=== PATIENT | male | born 1970 | race Caucasian/White ===

== ENCOUNTER 2017-01-11 14:29 | Outpatient (CLI) | payer MEDICAID ==
[2017-01-11 19:20] LABS: BASOPHILS # (AUTO) 0.1 10^3/uL (0.0-0.1); BASOPHILS % (AUTO) 0.6 %; EOSINOPHILS # (AUTO) 0.2 10^3/uL (0.0-0.7); HCT - HEMATOCRIT 43.5 % (42.0-52.0); LYMPHOCYTES # (AUTO) 4.2 10^3/uL (1.5-3.5); LYMPHOCYTES % (AUTO) 23.9 %; MEAN CORPUSCULAR HEMOGLOBIN 28.5 pg (27.0-31.0); MEAN CORPUSCULAR HGB CONC 32.2 g/dL (32.0-36.0); MEAN CORPUSCULAR VOLUME 88.4 fL (80.0-94.0); MEAN PLATELET VOLUME 7.9 fL (7.4-11.4); MONOCYTES # (AUTO) 1.1 10^3/uL (0.0-1.0); MONOCYTES % (AUTO) 6.1 %; NEUTROPHILS % (AUTO) 68.4 %; RED BLOOD COUNT 4.92 10^6/uL (4.70-6.10); RED CELL DISTRIBUTION WIDTH 14.5 % (12.0-15.0); UNCORRECTED WHITE BLOOD COUNT 17.5 x10^3/uL; WHITE BLOOD COUNT 17.5 x10^3/uL (4.8-10.8)
[2017-01-11 19:39] LABS: ALBUMIN/GLOBULIN RATIO 0.8 (1.0-2.2); BILIRUBIN,TOTAL 0.5 mg/dL (0.2-1.0); BUN - BLOOD UREA NITROGEN 13 mg/dL (6-20); CALCIUM 9.1 mg/dL (8.5-10.3); CARBON DIOXIDE - CO2 21 mmol/L (21-32); CHLORIDE 102 mmol/L (101-111); CHOL/HDL RATIO 3.1 (<5.0); CHOLESTEROL 144 mg/dL; CREATININE 0.9 mg/dL (0.6-1.2); GFR - MDRD 91 (>89); GLUCOSE 108 mg/dL (70-100); HDL CHOLESTEROL 46 mg/dL; LDL/HDL RATIO 1.6 (<3.6); POTASSIUM 3.6 mmol/L (3.5-5.0); SODIUM 138 mmol/L (135-145); TOTAL PROTEIN 8.3 g/dL (6.7-8.2); TRIGLYCERIDES 116 mg/dL; VLDL CHOLESTEROL 23 mg/dL
== END 2017-01-11 14:30 | disposition home or self-care (01) ==
LOC: LAB.N 14:29
PROVIDERS: ATTEND Family Medicine
DX: E66.01 Morbid (severe) obesity due to excess calories (principal); I10 Essential (primary) hypertension; Z79.899 Other long term (current) drug therapy
CPT/HCPCS: 36415; 80053; 80061; 84443; 85025

== ENCOUNTER 2017-01-11 14:38 | Outpatient (CLI) | payer MEDICAID | END 2017-01-11 14:39 | disposition home or self-care (01) | LOC: SC 14:38 | PROVIDERS: ATTEND Nurse Practitioner Family | DX: G47.33 Obstructive sleep apnea (adult) (pediatric) (principal); E66.01 Morbid (severe) obesity due to excess calories; I10 Essential (primary) hypertension; Z79.899 Other long term (current) drug therapy | CPT/HCPCS: 36415; 80053; 80061; 84443; 85025; 99212; 99214 ==

== ENCOUNTER 2017-07-14 14:13 | Outpatient (CLI) | payer MEDICAID | END 2017-07-14 14:14 | disposition home or self-care (01) | LOC: SC 14:13 | PROVIDERS: ATTEND Nurse Practitioner Family | DX: G47.33 Obstructive sleep apnea (adult) (pediatric) (principal) | CPT/HCPCS: 99212; 99214 ==

== ENCOUNTER 2017-09-02 15:06 | Outpatient (CLI) | payer MEDICAID ==
--- NOTE | 2017-09-02 16:02 | XRAY Report ---
LEFT KNEE THREE VIEWS: 09/02/2017 HISTORY: Pain. COMPARISON: None. FINDINGS: Medial and lateral knee joint space grossly well maintained. Mild patellar articular surface spurring. No fracture, malalignment, joint effusion or other abnormality. IMPRESSION: MINOR EARLY DEGENERATIVE CHANGE LEFT KNEE COMMENSURATE WITH THE PATIENT'S AGE. TD: 09/02/2017 16:01
== END 2017-09-02 15:07 | disposition home or self-care (01) ==
LOC: DI.N 15:06
PROVIDERS: ATTEND Family Medicine
DX: M17.12 Unilateral primary osteoarthritis, left knee (principal); I10 Essential (primary) hypertension; Z79.899 Other long term (current) drug therapy
CPT/HCPCS: 36415; 80053; 85025

== ENCOUNTER 2017-09-02 15:24 | Outpatient (CLI) | payer MEDICAID ==
[2017-09-02 18:55] LABS: BASOPHILS # (AUTO) 0.1 10^3/uL (0.0-0.1); BASOPHILS % (AUTO) 0.5 %; EOSINOPHILS # (AUTO) 0.1 10^3/uL (0.0-0.7); EOSINOPHILS % (AUTO) 0.9 %; HGB - HEMOGLOBIN 13.1 g/dL (14.0-18.0); LYMPHOCYTES # (AUTO) 3.1 10^3/uL (1.5-3.5); LYMPHOCYTES % (AUTO) 23.4 %; MEAN CORPUSCULAR HEMOGLOBIN 27.6 pg (27.0-31.0); MEAN CORPUSCULAR HGB CONC 32.3 g/dL (32.0-36.0); MEAN CORPUSCULAR VOLUME 85.6 fL (80.0-94.0); MONOCYTES # (AUTO) 0.8 10^3/uL (0.0-1.0); MONOCYTES % (AUTO) 6.1 %; NEUTROPHILS # (AUTO) 9.2 10^3/uL (1.5-6.6); NEUTROPHILS % (AUTO) 69.1 %; PLT - PLATELET COUNT 316 10^3/uL (130-450); RED BLOOD COUNT 4.76 10^6/uL (4.70-6.10); RED CELL DISTRIBUTION WIDTH 14.6 % (12.0-15.0); WHITE BLOOD COUNT 13.3 x10^3/uL (4.8-10.8)
[2017-09-02 19:17] LABS: ALBUMIN 3.8 g/dL (3.2-5.5); BILIRUBIN,TOTAL 0.5 mg/dL (0.2-1.0); CALCIUM 8.9 mg/dL (8.5-10.3); TOTAL PROTEIN 7.8 g/dL (6.7-8.2)
== END 2017-09-02 15:25 | disposition home or self-care (01) ==
LOC: LAB.N 15:24
PROVIDERS: ATTEND Family Medicine
DX: I10 Essential (primary) hypertension (principal); Z79.899 Other long term (current) drug therapy
CPT/HCPCS: 36415; 80053; 85025

== ENCOUNTER 2018-05-15 13:05 | Outpatient (CLI) | payer MEDICAID ==
[2018-05-15 19:17] LABS: BASOPHILS # (AUTO) 0.1 10^3/uL (0.0-0.1); BASOPHILS % (AUTO) 0.8 %; EOSINOPHILS # (AUTO) 0.2 10^3/uL (0.0-0.7); EOSINOPHILS % (AUTO) 1.9 %; HGB - HEMOGLOBIN 13.8 g/dL (14.0-18.0); LYMPHOCYTES # (AUTO) 2.3 10^3/uL (1.5-3.5); LYMPHOCYTES % (AUTO) 24.3 %; MEAN CORPUSCULAR HEMOGLOBIN 28.1 pg (27.0-31.0); MEAN CORPUSCULAR HGB CONC 32.2 g/dL (32.0-36.0); MEAN CORPUSCULAR VOLUME 87.2 fL (80.0-94.0); MEAN PLATELET VOLUME 7.9 fL (7.4-11.4); MONOCYTES # (AUTO) 0.5 10^3/uL (0.0-1.0); MONOCYTES % (AUTO) 5.8 %; NEUTROPHILS # (AUTO) 6.2 10^3/uL (1.5-6.6); NEUTROPHILS % (AUTO) 67.2 %; PLT - PLATELET COUNT 270 10^3/uL (130-450); RED BLOOD COUNT 4.92 10^6/uL (4.70-6.10); RED CELL DISTRIBUTION WIDTH 14.8 % (12.0-15.0); WHITE BLOOD COUNT 9.3 x10^3/uL (4.8-10.8)
[2018-05-15 19:38] LABS: ALBUMIN 3.7 g/dL (3.2-5.5); ALBUMIN/GLOBULIN RATIO 0.9 (1.0-2.2); ALKALINE PHOSPHATASE 72 IU/L (42-121); ALT ALANINE AMINOTRANSFERASE 25 IU/L (10-60); AST ASPARTATE AMINOTRANSFERASE 21 IU/L (10-42); BILIRUBIN,TOTAL 0.5 mg/dL (0.2-1.0); BUN - BLOOD UREA NITROGEN 10 mg/dL (6-20); CALCIUM 8.8 mg/dL (8.5-10.3); CARBON DIOXIDE - CO2 25 mmol/L (21-32); CHLORIDE 100 mmol/L (101-111); CHOL/HDL RATIO 3.4 (<5.0); CHOLESTEROL 156 mg/dL; CREATININE 0.8 mg/dL (0.6-1.2); GFR - MDRD 104 (>89); GLUCOSE 95 mg/dL (70-100); HDL CHOLESTEROL 46 mg/dL; LDL CHOLESTEROL,CALCULATED 91 mg/dL; SODIUM 136 mmol/L (135-145); TOTAL PROTEIN 7.8 g/dL (6.7-8.2); VLDL CHOLESTEROL 19 mg/dL
== END 2018-05-15 23:59 | disposition home or self-care (01) ==
LOC: LAB.N 13:05
PROVIDERS: ATTEND Family Medicine
DX: E66.01 Morbid (severe) obesity due to excess calories (principal); I10 Essential (primary) hypertension
CPT/HCPCS: 36415; 80053; 80061; 83721; 84443; 85025

== ENCOUNTER 2018-07-26 08:00 | Outpatient (CLI) | payer MEDICAID ==
[2018-07-26 19:13] LABS: BASOPHILS # (AUTO) 0.1 10^3/uL (0.0-0.1); BASOPHILS % (AUTO) 0.4 %; EOSINOPHILS # (AUTO) 0.2 10^3/uL (0.0-0.7); EOSINOPHILS % (AUTO) 1.2 %; LYMPHOCYTES # (AUTO) 2.7 10^3/uL (1.5-3.5); LYMPHOCYTES % (AUTO) 20.6 %; MEAN CORPUSCULAR HEMOGLOBIN 27.7 pg (27.0-31.0); MEAN CORPUSCULAR HGB CONC 32.2 g/dL (32.0-36.0); MEAN CORPUSCULAR VOLUME 86.2 fL (80.0-94.0); MEAN PLATELET VOLUME 7.7 fL (7.4-11.4); MONOCYTES # (AUTO) 0.7 10^3/uL (0.0-1.0); MONOCYTES % (AUTO) 5.6 %; NEUTROPHILS # (AUTO) 9.5 10^3/uL (1.5-6.6); NEUTROPHILS % (AUTO) 72.2 %; PLT - PLATELET COUNT 301 10^3/uL (130-450); RED BLOOD COUNT 4.69 10^6/uL (4.70-6.10); RED CELL DISTRIBUTION WIDTH 14.8 % (12.0-15.0); WHITE BLOOD COUNT 13.2 x10^3/uL (4.8-10.8)
== END 2018-07-26 23:59 | disposition home or self-care (01) ==
LOC: LAB.N 08:00
PROVIDERS: ATTEND Physician Assistant Medical
DX: R06.02 Shortness of breath (principal)
CPT/HCPCS: 36415; 83880; 85025

== ENCOUNTER 2018-07-26 12:12 | Outpatient (CLI) | payer MEDICAID ==
--- NOTE | 2018-07-26 13:54 | XRAY Report ---
Reason: SOB Procedure Date: 07/26/2018 Accession Number: [id number] / [id number] Procedure: XRN - Chest 2 View X-Ray CPT Code: 05942 FULL RESULT: EXAM: CHEST RADIOGRAPHY EXAM DATE: 07/26/2018 12:45 PM. CLINICAL HISTORY: Shortness of breath. COMPARISON: None. TECHNIQUE: 2 views. FINDINGS: The examination is limited due to patient body habitus, underpenetration and positioning. Lungs/Pleura: Within these limitations, no focal opacities evident. No pleural effusion. No pneumothorax. Normal volumes. Mediastinum: The cardiomediastinal contour demonstrates a tortuous aorta. The cardiac silhouette is not enlarged. Other: None. IMPRESSION: No acute airspace disease is detected. RADIA
== END 2018-07-26 12:13 | disposition home or self-care (01) ==
LOC: DI.N 12:12
PROVIDERS: ATTEND Physician Assistant Medical
DX: R06.02 Shortness of breath (principal)
CPT/HCPCS: 71046

== ENCOUNTER 2018-09-13 10:59 | Outpatient (CLI) | payer MEDICAID ==
--- NOTE | 2018-09-13 11:25 | CT Report ---
Reason: INTRACTABLE MIGRAINE WITH AURA WITH STATUS MIGRAIN Procedure Date: 09/13/2018 Accession Number: [id number] / [id number] Procedure: CT - HEAD WO CPT Code: FULL RESULT: EXAM: CT HEAD EXAM DATE: 09/13/2018 11:11 AM. CLINICAL HISTORY: INTRACTABLE MIGRAINE WITH AURA WITH STATUS MIGRAINE. COMPARISON: None. TECHNIQUE: Multiaxial CT images were obtained from the foramen magnum to the vertex. Reformats: Sagittal and coronal. IV contrast: None. In accordance with CT protocol optimization, one or more of the following dose reduction techniques were utilized for this exam: automated exposure control, adjustment of mA and/or KV based on patient size, or use of iterative reconstructive technique. FINDINGS: Parenchyma: No intraparenchymal hemorrhage. No evidence of mass, midline shift, or CT findings of infarction. Adame-white differentiation is distinct. Extraaxial Spaces: Normal for age. No subdural or epidural collections identified. Ventricles: Normal in size and position. Sinuses and Orbits: Imaged paranasal sinuses, orbits, and mastoids show no significant abnormality. Bones: No evidence of fracture or calvarial defect. Other: None. IMPRESSION: Normal head CT. RADIA
== END 2018-09-13 11:00 | disposition home or self-care (01) ==
LOC: DI 10:59
PROVIDERS: ATTEND Psychiatry & Neurology Neurology
DX: S09.90XA Unspecified injury of head, initial encounter (principal); G43.111 Migraine with aura, intractable, with status migrainosus
CPT/HCPCS: 70450

== ENCOUNTER 2019-03-20 13:18 | Outpatient (CLI) | payer MEDICAID ==
[2019-03-20 15:13] VITALS: BP 120/80
--- NOTE | 2019-03-20 15:13 | SLEEP CARE CONSULTATION ---
Information from patient questionnaire entered by Sherice Graves. I have reviewed and concur with the information entered by Sherice Graves. This document represents the service I personally performed and the decisions made by me, Patrica Andres, RN, MSN, PARALEGAL LEGAL SECRETARY. History of Present Illness Previous diagnosis: Extremely Severe, Obstructive Sleep Apnea-Hypopnea Syndrome AHI: 113.4 Reason for CPAP/BiPAP follow up: annual Equipment type: BiPAP Equipment obtained from: [facility] (having problems getting supplies) Mask style: Full face Mask brand: Resmed (Air Fit F20) Backup mask available: No (using his back up ) Last cushion change: 6 months or more Prior sleep studies: Yes Year and Where: 2010 [facility] CPAP Compliance Data - Data Reviewed with Patient Average duration of nightly device use: 4h 27m Compliance rate %: 55.6 Current pressure setting (cmH2O): 25/21 Humidity setting: off Heated hose setting: off Average residual AHI: 12.1 Central apnea: 0.1 Obstructive apnea: 0.4 Hypopnea: 11.6 Average large leak: 2.5 hours Subjective Patient concerns: reports: dry mouth, nose, throat (occasional). denies: aero phagia, mask discomfort, air blowing in eyes, mask leak noise, condensation in mask/hose, nasal congestion, epistaxis Observed to snore while using device: No Current pressure setting perceived as: comfortable On therapy, patient: reports: sleeping better, awakening more refreshed, being more awake and alert during the day, more rested overall. denies: drowsiness while driving (does not drive) Initial [place] Sleepiness Scale score: 16 Current [place] Sleepiness Scale score: 5 Allergies and Home Medications Home medication list reviewed: Yes Allergy and home medication list: Medication Name (generic/name brand) Strength & Dosage Imitrex 100mg tab one at onset of HERNANDEZ as needed Banophen 5mg tab one at bedtime Propranolol 80mg tab BID Zantac 300mg tab PRN Zoloft 100mg tab 2 BID Depakote 250mg tab 3 daily Gabapentin 300mg tab TID Enalapril 20mg tab at bedtime Lasix 10mg at BID Amovig 140mg injection montly for HERNANDEZ Porchlorper 10mg as needed if no imetrex atorvastatin 40mg daily Allergies: BEES Review of Systems Review of systems same as previous: Yes Physical Exam Blood Pressure: 120/80 Cuff size: wrist Heart Rate: 84 O2 Saturation: 97 Height: 6 ft 3 in Weight: 542 lb Body Mass Index: 67.7 BMI Classification: Obesity Class 3 Impression and Plan 1. Obstructive Sleep Apnea-Hypopnea Syndrome, extremely severe, with fair treatment compliance and elevated residual AHI. On BiPAP therapy, the patient has better sleep quality and is more rested overall. The complaince may be less due to extreme mask leaks which could be showing mask off face as patient states he does not wake with mask off his face. His residual AHI could be elevated by his mask leaks as well as his 22 pound weight gain. He states that his medications had increased recent weight and his neurologist has changed his medications which should reduce risk of weight gain. He is having difficulty getting supplies and would like to transfer. However, he may need to improve compliance his compliance first. I will make a transfer order and have staff discuss his options. Since it is unknown when he will get supplies and his mask is falling apart, I fitted him with a large Mari View sample. He is advised to discuss weight loss with his PCP as his current BMI 67 shows morbid obesity which will increase apnea risk and overall health risk. He is about 70 pounds more than when he was diagnosed in 2011. He can discuss a diet consultation and / or bariatric. He will need to change diet habits and lose weight as part of bariatric surgery process for better success of treatment. He is thus advised to make an appointment with PCP to discuss his weight and impact to his health. Currently he has dyspnea with ambulation which subsides within minutes of resting. Patient agreed with plan. Patient's apnea severity and rationale for treatment to reduce apnea, improve sleep quality and reduce cardiovascular and cerebrovascular events was reviewed. I also reviewed the benefit of consistent device use of BiPAP for hypertension gastric reflux, depression/anxiety, migraines. * Continue BiPAP pressure at 25/21 cmH2O * Try Mari View - large mask * Transfer to new DME * Notify me if snoring with mask or feeling that the pressure is too much or too little * Attempt to lose weight * Follow up with PCP for diet consultation / bariatric surgery discussion for weight loss. * Return for follow up in 2 months , or sooner if concerns arise I spent 100% of this 30 minute visit face to face with the patient with greater than 50% of this was spent time counseling the patient and coordination of care.
== END 2019-03-20 13:19 | disposition home or self-care (01) ==
LOC: SC 13:18
PROVIDERS: ATTEND Nurse Practitioner Family
DX: G47.33 Obstructive sleep apnea (adult) (pediatric) (principal); E66.01 Morbid (severe) obesity due to excess calories; Z68.44 Body mass index [BMI] 60.0-69.9, adult
CPT/HCPCS: 99212; 99214

== ENCOUNTER 2019-08-01 09:30 | Outpatient (CLI) | payer MEDICAID ==
[2019-08-01 12:06] LABS: BASOPHILS # (AUTO) 0.1 10^3/uL (0.0-0.1); BASOPHILS % (AUTO) 0.6 %; EOSINOPHILS # (AUTO) 0.2 10^3/uL (0.0-0.7); EOSINOPHILS % (AUTO) 2.1 %; HGB - HEMOGLOBIN 12.2 g/dL (14.0-18.0); LYMPHOCYTES # (AUTO) 3.4 10^3/uL (1.5-3.5); LYMPHOCYTES % (AUTO) 30.9 %; MEAN CORPUSCULAR HEMOGLOBIN 26.4 pg (27.0-31.0); MEAN CORPUSCULAR HGB CONC 30.4 g/dL (32.0-36.0); MEAN CORPUSCULAR VOLUME 86.8 fL (80.0-94.0); MONOCYTES # (AUTO) 0.6 10^3/uL (0.0-1.0); MONOCYTES % (AUTO) 5.7 %; NEUTROPHILS # (AUTO) 6.5 10^3/uL (1.5-6.6); NEUTROPHILS % (AUTO) 59.7 %; PLT - PLATELET COUNT 288 10^3/uL (130-450); RED BLOOD COUNT 4.62 10^6/uL (4.70-6.10); RED CELL DISTRIBUTION WIDTH 15.3 % (12.0-15.0); WHITE BLOOD COUNT 10.9 x10^3/uL (4.8-10.8)
[2019-08-01 12:21] LABS: HB2 TOTAL 12.5 g/dL; HEMOGLOBIN A1C 0.63 g/dL; HEMOGLOBIN A1C % 6.8 % (4.6-6.2)
[2019-08-01 12:28] LABS: ALBUMIN 3.4 g/dL (3.2-5.5); ALBUMIN/GLOBULIN RATIO 0.8 (1.0-2.2); ALKALINE PHOSPHATASE 81 IU/L (42-121); ALT ALANINE AMINOTRANSFERASE 32 IU/L (10-60); AST ASPARTATE AMINOTRANSFERASE 25 IU/L (10-42); BILIRUBIN,TOTAL 0.5 mg/dL (0.2-1.0); BUN - BLOOD UREA NITROGEN 11 mg/dL (6-20); CALCIUM 8.4 mg/dL (8.5-10.3); CARBON DIOXIDE - CO2 24 mmol/L (21-32); CHLORIDE 101 mmol/L (101-111); CHOL/HDL RATIO 2.7 (<5.0); CHOLESTEROL 120 mg/dL; CREATININE 0.9 mg/dL (0.6-1.2); GFR - MDRD 90 (>89); GLUCOSE 128 mg/dL (70-100); HDL CHOLESTEROL 44 mg/dL; LDL CHOLESTEROL,CALCULATED 57 mg/dL; LDL/HDL RATIO 1.3 (<3.6); SODIUM 136 mmol/L (135-145); TOTAL PROTEIN 7.5 g/dL (6.7-8.2); VLDL CHOLESTEROL 19 mg/dL
== END 2019-08-01 23:59 | disposition home or self-care (01) ==
LOC: LAB.N 09:30
PROVIDERS: ATTEND Physician Assistant Medical
DX: I10 Essential (primary) hypertension (principal); I25.2 Old myocardial infarction; E66.01 Morbid (severe) obesity due to excess calories
CPT/HCPCS: 36415; 80053; 80061; 83036; 83721; 85025

== ENCOUNTER 2019-08-02 19:30 | Outpatient (CLI) | payer MEDICAID | END 2019-08-02 23:59 | LOC: SC 19:30 | PROVIDERS: ATTEND Internal Medicine Pulmonary Disease | DX: G47.33 Obstructive sleep apnea (adult) (pediatric) (principal) | CPT/HCPCS: 95806 ==

== ENCOUNTER 2019-10-08 13:57 | Outpatient (CLI) | payer MEDICAID ==
--- NOTE | 2019-10-08 11:31 | SLEEP CARE CONSULTATION ---
Information from patient questionnaire entered by Sherice Graves. I have reviewed and concur with the information entered by Sherice Graves. This document represents the service I personally performed and the decisions made by me, Patrica Andres RN, MSN, TIRE SHOP MANAGER. History of Present Illness Service Date and Time: 10/08/2019 1100 Initial [place] Sleepiness Scale score: 16 Additional HPI information: JUSTINO GAMBINO returns for a video telehealth appointment. for follow up and results of the recently performed home sleep study to requalify for a new BiPAP. Patient is currently using a loaner BiPAP device set at unknown pressure range by Dr. Cha as his device broke. He reports intermittent air hunger. There is no data for this device at this visit. I explained the pathophysiology behind obstructive sleep apnea. We then spent quite a bit of time discussing different treatment options. For mild obstructive sleep apnea, surgery and oral appliance are alternatives to nasal CPAP therapy but in moderate or severe cases, nasal CPAP is the most effective and reliable treatment. I reviewed the impact of weight changes on sleep apnea and strongly recommended losing weight. After some discussion, the patient opted to continue with BiPAP therapy. A Prescription will be made to update his BiPAP at past pressure range noted in his past visit note last fall at 25/90khV25. I reviewed how BiPAP machine works and emphasized use with all sleep. His compliance was at 55% last visit due to missed days when migraines. I reviewed compliance requirements from insurance for a new device and process. He is to contact this office once he obtains his new BiPAP to set up follow up. I reviewed his mask preference for proscription . I also asked if there was a preference for PAP devices Respironics Dreamstation and ResMed [id number]. The patient was instructed to call the CPAP/BiPAP supplier to discuss any mechanical problem that may occur. If the mask given is uncomfortable or is difficult to keep on through the night even with adjustment, contact the CPAP supplier as many will replace with another mask style if notified before 30 days. If snoring or perceives is not getting enough air or too much air from the machine, notify this office. Patient counseled not drink alcohol less than 4 hours before bedtime as it can increase snoring and apnea. Patient was cautioned about risks of drowsy driving until sleepiness symptoms resolve. Patient denies drowsy driving. Patient does not drive. Sleep Study - Results Polysomnography/Home Sleep Study results: Patient Name: Justino Gambino. Study Date: 08/02/2019 Referred by: Mat Barrera PA-C Interpreting MD: Анна Cha MD PATIENT INFORMATION: This 48-year-old Male was referred for a type 3 portable sleep study. Sleep Study Indications: excessive daytime sleepiness, wake up gasping. The patient is 72.5 in and weight was 542.0 lb, which represented a BMI of 72.49. The patient has an [place] score of 16/24. PROCEDURE: The patient underwent a digital diagnostic portable type 3 device home sleep test; Utilizing [employer] portable sleep monitor. The patient was trained in the office on how to connect themselves to the SleepView and verify that the device was connected properly. Sleep time (identified as AASM equivalent of Monitoring Time [MT] in this report) was recorded via actigr aphy derived from an accelerometer physically integrated into the SleepView unit; also providing body position monitoring. Airflow and snore were recorded via an oral/nasal cannula. The option for a 2nd measure of airflow via oral/nasal thermistor is also present. Respiratory effort was recorded via Respiratory Inductance Plethysmography (also known as RIP technology, including the option for a secondary RIP belt). Oxygen saturation was obtained by a pulse oximeter, to identify oxygen desaturations and heart rate variations. All raw data was graphically depicted and utilized for scoring and detailed interpretive review. The patient underwent one night of study. The data was recorded internally to memory built into the SleepView unit and uploaded to [email or web address] website for scoring and interpretation. All raw data, graphically depicting all recorded channels, was utilized for scoring and detailed interpretive review. The standards put forth by the [place] Academy [employer] Medicine were followed for the complete scoring by a Registered Animal Care Service Worker and interpretation by a Board Certified Sleep Medicine Physician. SLEEP TIME AND EFFICIENCY: The sleep study recording began at 12:22:19 AM and ended at 07:11:40 AM. Total recording time was 409.4 minutes. The total sleep time was 351.1 minutes. The sleep efficiency was 85.8 percent. The patient spent 156.5 minutes supine, and spent 194.6 minutes non-supine. The patients own estimate of sleep time was 7.00 hours. RESPIRATORY DATA: The AHI in this report is indexed to sleep time based on actigraphy. The AASM defines this as GAUTAM. The AHI on this type 3 Home Sleep Study may understate the AHI determined on a type 1 or 2 study, since EEG is not monitored resulting in the inability to score non-desaturating hypopneas. Based on 4% Calculation: The AHI4% calculation of 48.4 per hour of recording time was based on a total of 220 scored apneas and 63 scored hypopneas with 4% desaturations. Supine AHI4%: 79.4 per hour. Non-supine AHI4%: 23.1 per hour. Oxygen Summary: Patient's baseline O2 saturation was 96.0 %. The patient spent 42.1 minutes at an oxygen saturation less than 90%, and 11.6 minutes less than 85%. The desaturation index was 37.9 events per hour sleep time. The lowest saturation was 63.3 %. SNORING: The percent of the study time spent snoring was 1.5 %. The Snoring Count was 192 . The Snoring Index was Patient Name: Justino Gambino Study Date: 08/02/2019 : 1970 Page 2 of 7 32.8 . PULSE RATE REVIEW: The mean heart rate was 65 beats per minute. The rate ranged from a low of 32 to a high of 136 beats per minute. DIAGNOSIS CODE: Findings were consistent with severe obstructive sleep apnea G47.33, worse durin g supine sleep. Severe desaturations were noted. ? Consider nasal continuous positive airway pressure (CPAP) as the initial treatment choice for severe obstructive sleep apnea. If the patient chooses CPAP therapy, a nocturnal PSG with CPAP titration or an AutoPAP (pressure range 5-20 cmH20) with download can be considered. Consider PAP interface (mask) fitted for patient comfort, heated humidification & PAP compliance monitoring (1 month, 3 months & 12 months after PAP initiation). Allergies and Home Medications Home medication list reviewed: No (changes are adding of atorvastatin, norvasc & metformin) Review of Systems Review of systems same as previous: No (sees retail salesperson this month for enlarged heart and diagnosed with diabetes) Physical Exam Height: 6 ft 3 in Weight: 542 lb (home weight) Body Mass Index: 67.7 BMI Classification: Morbidly Obese Impression and Plan 1. Obstructive Sleep Apnea-Hypopnea Syndrome, severe, with lowest oxygen saturation of 63%. This was to re qualify for new BiPAP. He is currently using a loaner and is more rested with use. However, he feels current pressure is insufficient at times. When I looked at his last visit note last fall, he had a mildly increased residual AHI that could be due to his increase in weight. He is currently at the highest BiPAP pressure range available on device used at [facility] visit. It is unknown if the loaner is at same pressure as no data available. Thus I again reviewed the importance of losing weight to reduce BiPAP pressures needs and to reduce overall health risks of diabetes, hypertension, cardiac disease. He states that other priorities in his health have been priorities in past visit medical visits. He is advised to make an appointment to PCP just to discuss weight management with diet consultation and possibly bariatric surgery. As mentioned above, the patient will have his BiPAP updated with pressure set at 25/21 cmH2O. A manual titration study will be completed if unable to find optimal treatment pressure with office adjustments. Compliance guidelines also reviewed. A copy of compliance guidelines will be given for reference at check out. Because the apnea is more severe supine, I instructed to avoid sleeping supine using pillow positioning if unable to use his BIPAP. ; * Update BiPAP pressure to 25/21 cmH2O * Notify me if snoring with mask or feeling that the pressure is too much or too little * Attempt to lose weight * Make appointment with PCP to discuss weight management. * Call this office if any problems using CPAP * Return for follow up in 1 month after new device , or sooner if concerns arise Visit Type: Telehealth Video (to reduce risk of Covid19 exposure) Video Type: Animoto Patient Location: Home Location of Provider: Home Patient agrees and consents to this telehealth visit type: Yes Patient agrees to have their insurance billed: Yes Time Spent with Patient (minutes): 25 Provider Statement: I spent 100% of the Telehealth Video Call with the patient with greater than 50% spent counseling the patient and coordination of care.
== END 2019-10-08 13:58 | disposition home or self-care (01) ==
LOC: SC 13:57
PROVIDERS: ATTEND Nurse Practitioner Family
DX: G47.33 Obstructive sleep apnea (adult) (pediatric) (principal); E66.01 Morbid (severe) obesity due to excess calories; Z68.44 Body mass index [BMI] 60.0-69.9, adult

== ENCOUNTER 2019-11-14 10:10 | Outpatient (CLI) | payer MEDICAID ==
[2019-11-14 11:58] LABS: BASOPHILS # (AUTO) 0.1 10^3/uL (0.0-0.1); BASOPHILS % (AUTO) 0.6 %; EOSINOPHILS # (AUTO) 0.2 10^3/uL (0.0-0.7); EOSINOPHILS % (AUTO) 1.6 %; LYMPHOCYTES # (AUTO) 2.6 10^3/uL (1.5-3.5); MEAN CORPUSCULAR VOLUME 87.4 fL (80.0-94.0); MEAN PLATELET VOLUME 9.3 fL (7.4-11.4); MONOCYTES # (AUTO) 0.7 10^3/uL (0.0-1.0); MONOCYTES % (AUTO) 5.7 %; NEUTROPHILS # (AUTO) 7.8 10^3/uL (1.5-6.6); NEUTROPHILS % (AUTO) 67.9 %; PLT - PLATELET COUNT 298 10^3/uL (130-450); RED BLOOD COUNT 4.29 10^6/uL (4.70-6.10); RED CELL DISTRIBUTION WIDTH 14.8 % (12.0-15.0); WHITE BLOOD COUNT 11.5 x10^3/uL (4.8-10.8)
[2019-11-14 12:46] LABS: ALBUMIN 3.4 g/dL (3.2-5.5); ALBUMIN/GLOBULIN RATIO 0.8 (1.0-2.2); ALKALINE PHOSPHATASE 93 IU/L (42-121); ALT ALANINE AMINOTRANSFERASE 25 IU/L (10-60); AST ASPARTATE AMINOTRANSFERASE 20 IU/L (10-42); BILIRUBIN,TOTAL 0.4 mg/dL (0.2-1.0); BUN - BLOOD UREA NITROGEN 17 mg/dL (6-20); CALCIUM 8.2 mg/dL (8.5-10.3); CARBON DIOXIDE - CO2 27 mmol/L (21-32); CHLORIDE 97 mmol/L (101-111); CHOL/HDL RATIO 2.2 (<5.0); CHOLESTEROL 103 mg/dL; CREATININE 0.8 mg/dL (0.6-1.2); GLUCOSE 169 mg/dL (70-100); HDL CHOLESTEROL 47 mg/dL; LDL CHOLESTEROL,CALCULATED 43 mg/dL; LDL/HDL RATIO 0.9 (<3.6); SODIUM 135 mmol/L (135-145); TOTAL PROTEIN 7.5 g/dL (6.7-8.2); VLDL CHOLESTEROL 13 mg/dL
== END 2019-11-14 23:59 | disposition home or self-care (01) ==
LOC: LAB.WCP 10:10
PROVIDERS: ATTEND Nurse Practitioner Family
DX: E66.01 Morbid (severe) obesity due to excess calories (principal); I10 Essential (primary) hypertension; R73.03 Prediabetes
CPT/HCPCS: 36415; 80053; 80061; 83721; 84443; 85025

== ENCOUNTER 2020-01-10 09:17 | Outpatient (CLI) | payer MEDICAID ==
--- NOTE | 2020-01-10 10:08 | SLEEP CARE CONSULTATION ---
Information from patient questionnaire entered by Kaleigh Zimmer. I have reviewed and concur with the information entered by Kaleigh Zimmer. This document represents the service I personally performed and the decisions made by me, Patrica Andres, RN, MSN, ADVERTISING SALES AGENT. History of Present Illness Service Date and Time: 01/10/2020916 Previous diagnosis: Severe, Obstructive Sleep Apnea-Hypopnea Syndrome AHI: 48.4 (in 2019, 113.4 in 2010) Reason for follow up: first compliance after device update Equipment type: BiPAP Equipment obtained from: [employer] (getting supplies) Mask style: Full face (Air Fit F20 large) Backup mask available: No (keep current mask as spare when replaced. ) Prior sleep studies: Yes Year and Where: 2010 - [place] , 2019 - [facility] Type of Sleep Study: Polysomnography HPI additional information: Patient pleased with new BiPAP CPAP Compliance Data - Data Reviewed with Patient Average duration of nightly device use: 8.7 Compliance rate %: 98.3 Current pressure setting (cmH2O): 25/21 Humidity settin Heated hose settin Average residual AHI: 8.8 Central apnea: 0.0 Obstructive apnea: 0.0 Hypopnea: 8.8 Average large leak: 6 hr 53 min 36 sec Subjective Patient concerns: reports: mask discomfort (minor discomfort at tear of mask at bridge of nose), air blowing in eyes, mask leak noise, other (tear in mask affecting mask leaks - not due until next month for replacement. ). denies: aerophagia, condensation in mask/hose, nasal congestion, dry mouth, nose, throat, epistaxis Observed to snore while using device: No Current pressure setting perceived as: comfortable On therapy, patient: reports: sleeping better (cannot sleep without his BIPAP), awakening more refreshed, being more awake and alert during the day, more rested overall. denies: drowsiness while driving (does not drive) Initial [place] Sleepiness Scale score: 16 (in 2013) Allergies and Home Medications Known drug allergies: No Home medication list reviewed: No (added glipizide for new diabetes/ Norvasc for HTN) Review of Systems Review of systems same as previous: No (diagnosed with diabetes / hypertension) Physical Exam Height: 6 ft 3 in Weight: 542 lb (stable - not weighed ) Body Mass Index: 67.7 BMI Classification: Morbidly Obese Impression and Plan 1. Obstructive Sleep Apnea-Hypopnea Syndrome, severe with good treatment compliance and mild elevation of residual AHI that seems to be related to his mask leaks. He is at maximum of BiPap pressure for apnea control. On BiPAP therapy, the patient has better sleep quality and is more rested overall. Until he can replace his mask cushion that is torn, he can try duct tape, medical tape or bandaid to repair. He can also add cloth barrier if needed at tear of mask fo r comfort and and to reduce mask leaks. In addition, to reduce risk of eye irritation from mask leaks he is advise to wear eye sleep cover mask. Currently patients BMI is 67.7 obesity class . I counseled him how his morbid obesity increases the risk of apnea, CPAP pressure requirements and overall health risks especially cardiovascular and diabetes. Thus patient is advised to lose weight. Weight loss can be done with reducing portion size, reducing refined foods and balancing content with vegetables, fruit and protein. A diet consultation can be helpful in achieving optimal weight loss goals. Patient was strongly encouraged to discuss his weight loss goals with his PCP and for a referral to a sweatband decorating machine operator and consideration of bariatric surgery. I counseled him how weight loss could benefit his new diagnosis of hypertension and diabetes as well. Patient's apnea severity and rationale for treatment to reduce apnea, improve sleep quality and reduce cardiovascular and cerebrovascular events was reviewed. I also reviewed the benefit of consistent device use of BiPAP for hypertension, diabetes, and migraines * Continue BiPAP pressure at 25/21 cmH2O * Update mask when available * Notify me if snoring with mask or feeling that the pressure is too much or too little * Attempt to lose weight * Follow up with PCP for diet consultation. * Call this office if any problems using CPAP * Return for follow up in 1year , or sooner if concerns arise Visit Type: Telehealth Video Video Type: Patient Home Monitoring Time Spent with Patient (minutes): 18 Provider Statement: I spent 100% of the Telehealth Video Call with the patient with greater than 50% spent counseling the patient and coordination of care.
== END 2020-01-10 09:18 | disposition home or self-care (01) ==
LOC: SC 09:17
PROVIDERS: ATTEND Nurse Practitioner Family
DX: G47.33 Obstructive sleep apnea (adult) (pediatric) (principal); E66.01 Morbid (severe) obesity due to excess calories; Z68.44 Body mass index [BMI] 60.0-69.9, adult

== ENCOUNTER 2020-04-16 19:57 | Outpatient (CLI) | payer MEDICAID | END 2020-04-16 19:58 | disposition critical access hospital (66) | LOC: EMS 19:57 | PROVIDERS: ATTEND Surgery | DX: R10.32 Left lower quadrant pain (principal); R19.7 Diarrhea, unspecified | CPT/HCPCS: A0425; A0427; A0999 ==

== ENCOUNTER 2020-04-16 20:18 | Emergency (ER) | payer MEDICAID ==
--- NOTE | 2020-04-16 20:42 | ED Physician Documentation ---
PD HPI ABD PAIN - Stated complaint Stated Complaint: LLQ PAIN - Chief complaint Chief Complaint: Abd Pain - History obtained from History obtained from: Patient - History of Present Illness Timing - onset: Today Timing - duration: Hours Timing - details: Abrupt onset Quality: Sharp, Pain Location: LLQ Improved by: No: Eating, Laying still, Vomiting, BM, Position Worsened by: Palpation. No: Eating, Moving, Breathing, Position Associated symptoms: Nausea. No: Fever, Vomiting, Hematemesis, Diarrhea, Constipation, Melena, Hematochezia, Dysuria, Hematuria, Chest pain, Dizzy Similar symptoms before: Has not had sx before Recently seen: Not recently seen - Additional information Additional information: 49 yo M w/ pmh of morbid obesity, diabetes, prior appendectomy presents with llq pain x 3-4 days. Presents today due to worsening pain. Pain is localized to the LLQ, no radiation. He has nausea but no vomiting, no diarrhea, no dysu chandrakant/urge/freq. Tolerating po but appetite decreased. He did have a stool today and his stated that it looked "a little tarry," but no mariposa blood. Denies fever/chills, cough or URI sx, chest pain, dyspnea. No known sick contacts. Has never had this pain before. He hasn't tried anything for the pain. At baseline, pt is ambulatory short distances in the home. He uses a motorized scooter to go to the store or outside. Review of Systems Constitutional: reports: Reviewed and negative Cardiac: reports: Reviewed and negative Respiratory: reports: Reviewed and negative GI: reports: Abdominal Pain, Nausea, Bloody / black stool. denies: Abdominal Swelling, Vomiting, Constipation, Diarrhea, Hematemesis : reports: Reviewed and negative Skin: reports: Reviewed and negative Musculoskeletal: reports: Reviewed and negative Neurologic: reports: Reviewed and negative PD PAST MEDICAL HISTORY - Past Medical History Past Medical History: Yes Cardiovascular: Hypertension, High cholesterol, Coronary artery disease Respiratory: Other Neuro: None Endocrine/Autoimmune: None GI: None : None HEENT: None Psych: Anxiety Musculoskeletal: Osteoarthritis, Fatigue, Chronic back pain Derm: None - Past Surgical History Past Surgical History: Yes Ortho: Rotator cuff repair - Allergies Allergies/Adverse Reactions: Allergies Allergy/AdvReac Type Severity Reaction Status Date / Time hydrochlorothiazide Allergy Edema Verified 04/16/20 20:33 - Social History Does the pt smoke?: No Smoking Status: Never smoker Does the pt drink ETOH?: No Does the pt have substance abuse?: No - Immunizations Immunizations are current?: No - POLST Patient has POLST: No PD ED PE NORMAL - Vitals Vital signs reviewed: Yes - General General: Alert and oriented X 3, No acute distress, Other (Morbidly obese) - HEENT HEENT: Atraumatic, Moist mucous membranes - Neck Neck: Other (thick neck) - Cardiac Cardiac: RRR, No murmur, No gallop, No rub, Strong equal pulses - Respiratory Respiratory: No respiratory distress, Clear bilaterally - Abdomen Abdomen: Normal bowel sounds, Soft, Non distended, Other (Mild ttp w/ deep palpation llq. No other areas of tenderness. ) - Male Male : Deferred - Rectal Rectal: Deferred - Back Back: No CVA TTP - Derm Derm: Normal color, Warm and dry, Other (redness under the breast tissue bilat R>L) - Extremities Extremities: No deformity, No calf tenderness / cord - Neuro Neuro: Alert and oriented X 3 Eye Opening: Spontaneous Motor: Obeys Commands Verbal: Oriented GCS Score: 15 Results - Vitals Vitals: Vital Signs - 24 hr 04/16/20 04/16/20 04/16/20 20:15 20:40 21:03 Temperature 36.9 C Heart Rate 95 97 Respiratory 18 17 20 Rate Blood Pressure 133/70 H 111/57 L O2 Saturation 99 97 04/16/20 21:10 Temperature Heart Rate 93 Respiratory 20 Rate Blood Pressure 122/73 O2 Saturation 96 Oxygen O2 Source Nasal cannula - Labs Labs: Laboratory Tests 04/16/20 04/16/20 21:10 21:10 WBC 14.1 H RBC 4.34 L Hgb 12.0 L Hct 38.4 L MCV 88.5 MCH 27.6 MCHC 31.3 L RDW 15.4 H Plt Count 277 MPV 8.8 Neut # (Auto) 11.0 H Lymph # (Auto) 2.0 Dewitt # (Auto) 0.7 Eos # (Auto) 0.2 Baso # (Auto) 0.1 Absolute Nucleated RBC 0.00 Nucleated RBC % 0.0 Sodium 139 Potassium 3.5 Chloride 96 L Carbon Dioxide 26 Anion Gap 17.0 H BUN 15 Creatinine 1.0 Estimated GFR (MDRD) 79 L Glucose 198 H Calcium 8.9 Total Bilirubin 0.3 AST 17 ALT 27 Alkaline Phosphatase 107 Total Protein 7.6 Albumin 3.2 Globulin 4.4 H Albumin/Globulin Ratio 0.7 L Lipase 26 PD MEDICAL DECISION MAKING - ED course Complexity details: reviewed results, re-evaluated patient, considered differential, d/w patient, d/w family ED course: This is a 49 yo M who presented with llq pain and a possible single tarry stool. His exam is limited by his extreme obesity, but he was noted to have tenderness w/ deep palpation and had an elevated WBC at 14K, but stable H/H and stable CMP. Differentials include a diverticulitis, UTI, hernia, constipation, kidney stone. At the time of sign out we are awaiting a urinalysis and are attempting to get a partial CT scan to include the left lower abdomen/pelvis if possible. Pt is unable to fit width-zhao into the CT scanner for a full scan. He has received 4mg of morphine and 4mg of zofran with improvement in his symptoms. Pt signed out to Dr. Franks pending CT and UA results.
[2020-04-16 21:17] LABS: BASOPHILS # (AUTO) 0.1 10^3/uL (0.0-0.1); BASOPHILS % (AUTO) 0.4 %; EOSINOPHILS # (AUTO) 0.2 10^3/uL (0.0-0.7); EOSINOPHILS % (AUTO) 1.4 %; LYMPHOCYTES % (AUTO) 14.4 %; MEAN CORPUSCULAR HEMOGLOBIN 27.6 pg (27.0-31.0); MEAN CORPUSCULAR HGB CONC 31.3 g/dL (32.0-36.0); MEAN CORPUSCULAR VOLUME 88.5 fL (80.0-94.0); MEAN PLATELET VOLUME 8.8 fL (7.4-11.4); MONOCYTES # (AUTO) 0.7 10^3/uL (0.0-1.0); MONOCYTES % (AUTO) 4.9 %; NEUTROPHILS % (AUTO) 77.5 %; PLT - PLATELET COUNT 277 10^3/uL (130-450); RED BLOOD COUNT 4.34 10^6/uL (4.70-6.10); RED CELL DISTRIBUTION WIDTH 15.4 % (12.0-15.0); WHITE BLOOD COUNT 14.1 x10^3/uL (4.8-10.8)
[2020-04-16] MEDS ORDERED: MORPHINE 2 MG/ML CARPUJECT IVP STA ×2 (21:23→23:49)
[2020-04-16] MEDS ORDERED: ONDANSETRON 4 MG/2 ML VIAL IVP STA (21:23)
[2020-04-16 21:31] LABS: ALBUMIN 3.2 g/dL (3.2-5.5); ALBUMIN/GLOBULIN RATIO 0.7 (1.0-2.2); BILIRUBIN,TOTAL 0.3 mg/dL (0.2-1.0); CALCIUM 8.9 mg/dL (8.5-10.3); TOTAL PROTEIN 7.6 g/dL (6.7-8.2)
[2020-04-16] MEDS ORDERED: IOVERSOL 320 100 ML VIAL IVP ONE ×2 (21:58→22:41)
[2020-04-16 22:56] LABS: BILIRUBIN,URINE NEGATIVE (NEGATIVE); GLUCOSE, URINE (UA) NEGATIVE (NEGATIVE); KETONES,URINE (UA) NEGATIVE (NEGATIVE); LEUKOCYTE ESTERASE, URINE NEGATIVE (NEGATIVE); NITRITE,URINE NEGATIVE (NEGATIVE); OCCULT BLOOD,URINE NEGATIVE (NEGATIVE); PROTEIN,URINE NEGATIVE (NEGATIVE); UROBILINOGEN,URINE 0.2 (NORMAL) E.U./dL (NORMAL)
[2020-04-16 23:01] LABS: CLARITY,URINE CLEAR (CLEAR)
[2020-04-17] VITALS: BP 113/59
--- NOTE | 2020-04-17 07:28 | CT Report ---
PROCEDURE: Abdomen/Pelvis W INDICATIONS: LLQ pain CONTRAST: IV CONTRAST: Optiray 320 ml: 100 PO CONTRAST: *NO PO CONTRAST TECHNIQUE: After the administration of intravenous contrast, 5 mm thick sections acquired from the diaphragms to the symphysis. 5 mm thick coronal and sagittal reformats were acquired. For radiation dose reducti on, the following was used: automated exposure control, adjustment of mA and/or kV according to lucas ent size. COMPARISON: None. FINDINGS: Image quality: Study is significantly limited secondary to patient body habitus and exclusion of the left lateral lower chest and left abdomen from [id number]. There is also secondary beam hardening artifact. There is also limitation secondary to moderate patient motion.. ABDOMEN: Lung bases: Lung bases are grossly clear with minimal bibasilar atelectasis. Heart size is normal. Solid organs: Liver and spleen appear unremarkable as imaged. Gallbladder Biliary system is non d ilated. Pancreas enhances normally. Incompletely characterized 3 cm right adrenal mass. No left-faizan ed adrenal nodules. Kidneys demonstrate normal size and enhancement, without hydronephrosis. Peritoneum and bowel: Bowel loops demonstrate normal wall thickness and caliber. No free fluid or a ir. However, the distal transverse colon, splenic flexure, and descending colon are excluded. Small bowel in the left lateral abdomen are also excluded from imaging. Nodes and vessels: No retroperitoneal or mesenteric adenopathy by size criteria. Aorta and inferior vena cava are normal in size. Miscellaneous: No ventral hernias. PELVIS: Genitourinary: Bladder wall thickness is normal. Miscellaneous: No inguinal hernias or adenopathy. Bones: No obvious suspicious bony lesions. No acute vertebral body compression fractures. IMPRESSION: 1. Extremely limited evaluation of the abdomen secondary to exclusion from the [id number] of the l eft lateral abdomen and left lower chest. Additionally, this is the side of patient's symptoms. Other zhao, no gross abnormalities identified in the imaged portions of the abdomen and pelvis. 2. Incompletely characterized 3 cm right adrenal mass. Recommend dedicated outpatient imaging with CT or MRI using renal mass protocol. No significant discrepancy with initial interpretation by overnight radiologist. Reviewed by: Kyler Corrales MD on 04/17/2020 7:27 AM PST Approved by: Kyler Corrales MD on 04/17/2020 7:27 AM PST Station ID: [id number]
== END 2020-04-17 00:10 | disposition home or self-care (01) ==
LOC: EDUNIT# → ED 20:18
DX: R10.32 Left lower quadrant pain (principal); E66.01 Morbid (severe) obesity due to excess calories; E11.9 Type 2 diabetes mellitus without complications; I10 Essential (primary) hypertension; I25.10 Atherosclerotic heart disease of native coronary artery without angina pectoris
CPT/HCPCS: 36415; 74177; 80053; 81003; 83690; 85025; 96374; 96376; 99284; Q9967; 81001; 87086

== ENCOUNTER 2020-04-17 00:06 | Outpatient (CLI) | payer MEDICAID | END 2020-04-17 00:07 | disposition home or self-care (01) | LOC: EMS 00:06 | PROVIDERS: ATTEND Surgery | DX: E66.01 Morbid (severe) obesity due to excess calories (principal) | CPT/HCPCS: A0425; A0428 ==

== ENCOUNTER 2020-04-21 10:54 | Outpatient (CLI) | payer MEDICAID ==
[2020-04-21 18:18] LABS: BASOPHILS % (AUTO) 0.4 %; EOSINOPHILS # (AUTO) 0.2 10^3/uL (0.0-0.7); EOSINOPHILS % (AUTO) 1.7 %; HGB - HEMOGLOBIN 12.9 g/dL (14.0-18.0); LYMPHOCYTES # (AUTO) 1.8 10^3/uL (1.5-3.5); LYMPHOCYTES % (AUTO) 16.8 %; MEAN CORPUSCULAR HEMOGLOBIN 27.9 pg (27.0-31.0); MEAN CORPUSCULAR HGB CONC 30.6 g/dL (32.0-36.0); MEAN CORPUSCULAR VOLUME 90.9 fL (80.0-94.0); MEAN PLATELET VOLUME 9.7 fL (7.4-11.4); MONOCYTES # (AUTO) 0.5 10^3/uL (0.0-1.0); MONOCYTES % (AUTO) 4.5 %; NEUTROPHILS % (AUTO) 75.7 %; PLT - PLATELET COUNT 352 10^3/uL (130-450); RED BLOOD COUNT 4.63 10^6/uL (4.70-6.10); RED CELL DISTRIBUTION WIDTH 15.7 % (12.0-15.0); WHITE BLOOD COUNT 10.6 x10^3/uL (4.8-10.8)
[2020-04-21 19:19] LABS: ALBUMIN 3.6 g/dL (3.2-5.5); ALBUMIN/GLOBULIN RATIO 0.8 (1.0-2.2); BILIRUBIN,TOTAL 0.4 mg/dL (0.2-1.0); CALCIUM 8.9 mg/dL (8.5-10.3); CREATININE 0.9 mg/dL (0.6-1.2); CRP - C-REACTIVE PROTEIN 3.2 mg/dL (0-1.0); TOTAL PROTEIN 7.9 g/dL (6.7-8.2)
== END 2020-04-21 10:55 | disposition home or self-care (01) ==
LOC: LAB.WCP 10:54
PROVIDERS: ATTEND Family Medicine
DX: R10.9 Unspecified abdominal pain (principal); E11.9 Type 2 diabetes mellitus without complications
CPT/HCPCS: 36415; 80053; 85025; 85651; 86140

== ENCOUNTER 2020-08-26 08:00 | Outpatient (CLI) | payer MEDICAID ==
[2020-08-26 13:01] LABS: ESTIMATED AVERAGE GLUCOSE 189 mg/dL (70-100); HEMOGLOBIN A1c% 8.2 % (4.27-6.07)
[2020-08-26 13:06] LABS: CALCIUM 9.1 mg/dL (8.5-10.3); CREATININE 1.2 mg/dL (0.6-1.2); POTASSIUM 4.1 mmol/L (3.5-5.0)
== END 2020-08-26 23:59 | disposition home or self-care (01) ==
LOC: LAB.WCP 08:00
PROVIDERS: ATTEND Nurse Practitioner Family
DX: E27.8 Other specified disorders of adrenal gland (principal); E11.9 Type 2 diabetes mellitus without complications
CPT/HCPCS: 36415; 80048; 83036

== ENCOUNTER 2020-09-08 17:12 | Outpatient (CLI) | payer MEDICAID | END 2020-09-08 17:13 | disposition home or self-care (01) | LOC: COV 17:12 | PROVIDERS: ATTEND Physician Assistant | DX: Z01.812 Encounter for preprocedural laboratory examination (principal); Z20.822 Contact with and (suspected) exposure to COVID-19 ==

== ENCOUNTER 2020-12-09 13:50 | Outpatient (CLI) | payer MEDICAID ==
[2020-12-09 18:05] LABS: BASOPHILS # (AUTO) 0.1 10^3/uL (0.0-0.1); BASOPHILS % (AUTO) 0.4 %; EOSINOPHILS # (AUTO) 0.2 10^3/uL (0.0-0.7); EOSINOPHILS % (AUTO) 1.2 %; HCT - HEMATOCRIT 40.8 % (42.0-52.0); HGB - HEMOGLOBIN 12.5 g/dL (14.0-18.0); LYMPHOCYTES # (AUTO) 2.6 10^3/uL (1.5-3.5); LYMPHOCYTES % (AUTO) 20.9 %; MEAN CORPUSCULAR HEMOGLOBIN 26.3 pg (27.0-31.0); MEAN CORPUSCULAR HGB CONC 30.6 g/dL (32.0-36.0); MEAN CORPUSCULAR VOLUME 85.9 fL (80.0-94.0); MEAN PLATELET VOLUME 9.8 fL (7.4-11.4); MONOCYTES # (AUTO) 0.6 10^3/uL (0.0-1.0); MONOCYTES % (AUTO) 5.1 %; NEUTROPHILS # (AUTO) 8.8 10^3/uL (1.5-6.6); NEUTROPHILS % (AUTO) 71.7 %; PLT - PLATELET COUNT 334 10^3/uL (130-450); RED BLOOD COUNT 4.75 10^6/uL (4.70-6.10); RED CELL DISTRIBUTION WIDTH 14.6 % (12.0-15.0); WHITE BLOOD COUNT 12.3 x10^3/uL (4.8-10.8)
[2020-12-09 18:19] LABS: ALBUMIN 3.8 g/dL (3.2-5.5); ALBUMIN/GLOBULIN RATIO 0.8 (1.0-2.2); ALKALINE PHOSPHATASE 99 IU/L (42-121); ALT ALANINE AMINOTRANSFERASE 21 IU/L (10-60); AST ASPARTATE AMINOTRANSFERASE 21 IU/L (10-42); BILIRUBIN,TOTAL 0.7 mg/dL (0.2-1.0); BUN - BLOOD UREA NITROGEN 9 mg/dL (6-20); CALCIUM 8.5 mg/dL (8.5-10.3); CARBON DIOXIDE - CO2 22 mmol/L (21-32); CHLORIDE 94 mmol/L (101-111); CHOL/HDL RATIO 2.7 (<5.0); CHOLESTEROL 114 mg/dL; CREATININE 0.8 mg/dL (0.6-1.2); GFR - MDRD 102 (>89); GLUCOSE 141 mg/dL (70-100); HDL CHOLESTEROL 42 mg/dL; LDL CHOLESTEROL,CALCULATED 49 mg/dL; LDL/HDL RATIO 1.2 (<3.6); POTASSIUM 3.7 mmol/L (3.5-5.0); SODIUM 135 mmol/L (135-145); TOTAL PROTEIN 8.3 g/dL (6.7-8.2); TRIGLYCERIDES 116 mg/dL; VLDL CHOLESTEROL 23 mg/dL
[2020-12-09 18:33] LABS: CREATININE,URINE 145.7 mg/dL; MICROALBUM/CREATININE RATIO,UR 9.6 ug/mg (<30.0); MICROALBUMIN,URINE 1.4 mg/dL (0-300.0)
[2020-12-09 18:34] LABS: THYROID STIMULATING HORMONE 5.7 uIU/mL (0.34-5.60)
[2020-12-09 19:35] LABS: FREE T4 (FREE THYROXINE) 0.87 ng/dL (0.58-1.64)
== END 2020-12-09 23:59 | disposition home or self-care (01) ==
LOC: LAB.WCP 13:50
PROVIDERS: ATTEND Nurse Practitioner
DX: I10 Essential (primary) hypertension (principal); E11.9 Type 2 diabetes mellitus without complications; E66.01 Morbid (severe) obesity due to excess calories
CPT/HCPCS: 36415; 80053; 80061; 82043; 82570; 83721; 84153; 84403; 84439; 84443; 85025

== ENCOUNTER 2020-12-28 21:30 | Outpatient (CLI) | payer MEDICAID ==
[2020-12-31 14:18] LABS: FECAL OCCULT BLOOD (FIT) POSITIVE (NEGATIVE)
== END 2020-12-28 23:59 | disposition home or self-care (01) ==
LOC: LAB.WCP 21:30
PROVIDERS: ATTEND Nurse Practitioner
DX: Z12.11 Encounter for screening for malignant neoplasm of colon (principal)
CPT/HCPCS: 82274

== ENCOUNTER 2021-03-31 11:18 | Outpatient (CLI) | payer MEDICAID ==
[2021-03-31 20:06] LABS: ESTIMATED AVERAGE GLUCOSE 209 mg/dL (70-100); HEMOGLOBIN A1c% 8.9 % (4.27-6.07)
== END 2021-03-31 23:59 | disposition home or self-care (01) ==
LOC: LAB.WCP 11:18
PROVIDERS: ATTEND Nurse Practitioner
DX: E11.9 Type 2 diabetes mellitus without complications (principal); E29.1 Testicular hypofunction
CPT/HCPCS: 36415; 83036; 84403

== ENCOUNTER 2021-04-08 13:51 | Outpatient (CLI) | payer MEDICAID ==
--- NOTE | 2021-04-08 14:08 | SLEEP CARE CONSULTATION ---
Information from patient questionnaire entered by Nabeel Cerna. I have reviewed and concur with the information entered by Nabeel Cerna. This document represents the service I personally performed and the decisions made by me, Rashmi Richter ARNP. History of Present Illness Service Date and Time: 04/08/2021 1400 Previous diagnosis: Severe, Obstructive Sleep Apnea-Hypopnea Syndrome AHI: 48.4 (in 2019, 113.4 in 2010) Reason for follow up: annual (Last ssen 12/2019) Equipment type: BiPAP Equipment obtained from: [facility] (getting supplies as needed) Mask style: Full face (Air Fit F20 large) Backup mask available: Yes (old mask) Last cushion change: 2 months ago Prior sleep studies: Yes Year and Where: 2010 - [place] , 2019 - [facility] (T) [facility] additional information: JASON BELL was diagnosed to have severe, AHI 48.4, obstructive sleep apnea- hypopnea syndrome and returns via video telehealth visit today for BIPAP therapy annual follow-up. CPAP Compliance Data - Data Reviewed with Patient Average duration of nightly device use: 6 hours 46 minutes Compliance rate %: 96.1 Current pressure setting (cmH2O): 25/ Average residual AHI: 4.7 Average large leak: 4 hours 16 minutes Subjective Missed days of use due to: reports: other (waking with mask off) Patient concerns: denies: aerophagia, mask discomfort, air blowing in eyes, mask leak noise, condensation in mask/hose, nasal congestion, dry mouth, nose, throat, epistaxis, other Observed to snore while using device: No Current pressure setting perceived as: comfortable On therapy, patient: reports: sleeping better, awakening more refreshed, being more awake and alert during the day, more rested overall. denies: drowsiness while driving (doesn't drive) Initial [place] Sleepiness Scale score: 16 (in 2013) Current [place] Sleepiness Scale score: 3 Allergies and Home Medications Home medication list reviewed: Yes Allergy and home medication list: Diphenhydramine famotidine Clyclobenzaprine Furosemide Sertraline Sumatriptan Propranolol Gabapentin Glipizide Atorvastatin Norvasc Enalapril Hydrocortisone cream Ketoconazole cream OTC Acetaminophen, prn Review of Systems Review of systems same as previous: Yes (using power scooter to get around/ doesn't drive) Physical Exam Vital signs obtained and entered by: Telehealth visit to reduce exposure during covid pandemic Height: 6 ft 3 in Impression and Plan 1. Obstructive Sleep Apnea-Hypopnea Syndrome, severe, with good treatment compl iance and good apnea control. On BIPAP therapy, the patient has better sleep quality and is more rested overall. Patient has already registered their device for the recall. Patient denies any black particles seen in machine or hoses, any unusual odors coming from device. Patient has not experienced any physical symptoms such as upper airway irritation, headache, skin or eye irritation, asthma, nausea/vomiting, difficulty breathing or chest pain. If patient is not able to sleep due to waking up choking, gasping for air or other respiratory distress that they may decide to continue using it until it is either replaced or repaired. Patient voiced understanding and agreement with plan. He is looking into get bariatric surgery to reduce his weight. Patient's apnea severity and rationale for treatment to reduce apnea, improve sleep quality and reduce cardiovascular and cerebrovascular events was reviewed. I also reviewed the benefit of consistent device use of BIPAP for hypertension, diabetes and migraines. * Continue auto BIPAP pressure at 25/21 cmH2O * Notify me if snoring with mask or feeling that the pressure is too much or too little * Continue to try to lose weight * Call this office if any problems using BIPAP * Return for follow up in 1 year, or sooner if concerns arise Counseling Topics: Spare mask, Weight loss health impact Visit Type: Telehealth Video Video Type: VSee Patient Location: Home Location of Provider: Office Patient agrees and consents to this telehealth visit type: Yes Patient agrees to have their insurance billed: Yes Time Spent with Patient (minutes): 21 Provider Statement: I spent 100% of the Telehealth Video Call with the patient with greater than 50% spent counseling the patient and coordination of care.
== END 2021-04-08 13:52 | disposition home or self-care (01) ==
LOC: SC 13:51
PROVIDERS: ATTEND Nurse Practitioner Family
DX: G47.33 Obstructive sleep apnea (adult) (pediatric) (principal)
CPT/HCPCS: 99212; 99213

== ENCOUNTER 2021-06-22 15:18 | Outpatient (CLI) | payer MEDICAID | END 2021-06-22 15:19 | disposition EMS.NT | LOC: EMS 15:18 | DX: R42 Dizziness and giddiness (principal) ==

== ENCOUNTER 2021-08-04 08:22 | Outpatient (CLI) | payer MEDICAID ==
[2021-08-04 12:15] LABS: ESTIMATED AVERAGE GLUCOSE 232 mg/dL (70-100); HEMOGLOBIN A1c% 9.7 % (4.27-6.07)
[2021-08-04 12:25] LABS: BILIRUBIN,URINE NEGATIVE (NEGATIVE); GLUCOSE, URINE (UA) 250 mg/dL (NEGATIVE); KETONES,URINE (UA) NEGATIVE (NEGATIVE); LEUKOCYTE ESTERASE, URINE NEGATIVE (NEGATIVE); NITRITE,URINE NEGATIVE (NEGATIVE); OCCULT BLOOD,URINE NEGATIVE (NEGATIVE); PROTEIN,URINE TRACE mg/dL (NEGATIVE); UROBILINOGEN,URINE 0.2 (NORMAL) E.U./dL (NORMAL)
[2021-08-04 12:32] LABS: CLARITY,URINE CLOUDY (CLEAR)
[2021-08-04 12:34] LABS: THYROID STIMULATING HORMONE 4.91 uIU/mL (0.34-5.60)
[2021-08-04 12:38] LABS: FREE T4 (FREE THYROXINE) 0.9 ng/dL (0.58-1.64)
[2021-08-04 13:13] LABS: AMORPHOUS SEDIMENT,UR Marked /LPF; BACTERIA,URINE None Seen /HPF (None Seen); RBC,URINE None Seen /HPF (0-5); SQUAMOUS EPITHELIAL CELL,UR NONE SEEN (<= Few); WBC,URINE 0-3 /HPF (0-3)
== END 2021-08-04 08:23 | disposition home or self-care (01) ==
LOC: LAB.N 08:22
PROVIDERS: ATTEND Nurse Practitioner
DX: E11.9 Type 2 diabetes mellitus without complications (principal); R00.0 Tachycardia, unspecified
CPT/HCPCS: 36415; 81001; 83036; 84439; 84443; 87086

== ENCOUNTER 2021-10-08 09:46 | Outpatient (CLI) | payer MEDICAID ==
--- NOTE | 2021-10-08 14:22 | XRAY Report ---
PROCEDURE: Knee 4 View BILAT INDICATIONS: KNEE PAIN, BILAT TECHNIQUE: 4 views of each knee are obtained. COMPARISON: None. FINDINGS: Bones: No fractures or dislocations. No suspicious bony lesions. Mild tricompartmental periarticul ar osteophyte formation is present bilaterally. Soft tissues: No joint effusion. No suspicious soft tissue calcifications. IMPRESSION: Osteoarthritis. No acute fracture. No osseous lesion. If symptoms and/or clinical suspic ion for pathology continue, further assessment with repeat plain films, or advanced imaging (e.g., CT , MRI, or bone scan) is recommended for further assessment. Reviewed by: Bharti Lucero MD on 10/08/2021 2:20 PM PDT Approved by: Bharti Lucero MD on 10/08/2021 2:20 PM PDT Station ID: [id number]
== END 2021-10-08 09:47 | disposition home or self-care (01) ==
LOC: DI.N 09:46
PROVIDERS: ATTEND Nurse Practitioner
DX: Z79.899 Other long term (current) drug therapy (principal); M17.0 Bilateral primary osteoarthritis of knee; E11.9 Type 2 diabetes mellitus without complications; R60.9 Edema, unspecified; R06.02 Shortness of breath
CPT/HCPCS: 36415; 80053; 83880

== ENCOUNTER 2021-10-08 09:56 | Outpatient (CLI) | payer MEDICAID ==
[2021-10-08 12:37] LABS: ALBUMIN 3.5 g/dL (3.2-5.5); ALBUMIN/GLOBULIN RATIO 0.8 (1.0-2.2); BILIRUBIN,TOTAL 0.5 mg/dL (0.2-1.0); CALCIUM 9.1 mg/dL (8.5-10.3); POTASSIUM 3.8 mmol/L (3.5-5.0); TOTAL PROTEIN 7.7 g/dL (6.7-8.2)
== END 2021-10-08 09:57 | disposition home or self-care (01) ==
LOC: LAB.N 09:56
PROVIDERS: ATTEND Nurse Practitioner
DX: E11.9 Type 2 diabetes mellitus without complications (principal); R60.9 Edema, unspecified; Z79.899 Other long term (current) drug therapy; R06.02 Shortness of breath
CPT/HCPCS: 36415; 80053; 83880

== ENCOUNTER 2022-06-09 08:00 | Outpatient (CLI) | payer MEDICAID ==
[2022-06-09 17:53] LABS: BILIRUBIN,URINE NEGATIVE (NEGATIVE); GLUCOSE, URINE (UA) >=1000 mg/dL (NEGATIVE); KETONES,URINE (UA) NEGATIVE (NEGATIVE); LEUKOCYTE ESTERASE, URINE SMALL (NEGATIVE); NITRITE,URINE NEGATIVE (NEGATIVE); OCCULT BLOOD,URINE NEGATIVE (NEGATIVE); PROTEIN,URINE NEGATIVE (NEGATIVE); UROBILINOGEN,URINE 0.2 (NORMAL) E.U./dL (NORMAL)
[2022-06-09 18:04] LABS: CLARITY,URINE CLOUDY (CLEAR)
[2022-06-09 18:23] LABS: BACTERIA,URINE Rare /HPF (None Seen); RBC,URINE None Seen /HPF (0-5); SQUAMOUS EPITHELIAL CELL,UR NONE SEEN (<= Few); WBC,URINE >25 /HPF (0-3)
== END 2022-06-09 23:59 | disposition home or self-care (01) ==
LOC: LAB 08:00
PROVIDERS: ATTEND Nurse Practitioner
DX: R30.0 Dysuria (principal)
CPT/HCPCS: 81001; 87086

== ENCOUNTER 2022-06-14 08:00 | Outpatient (CLI) | payer MEDICAID ==
[2022-06-14 11:47] LABS: BILIRUBIN,URINE NEGATIVE (NEGATIVE); GLUCOSE, URINE (UA) 500 mg/dL (NEGATIVE); KETONES,URINE (UA) NEGATIVE (NEGATIVE); LEUKOCYTE ESTERASE, URINE SMALL (NEGATIVE); NITRITE,URINE NEGATIVE (NEGATIVE); OCCULT BLOOD,URINE TRACE-INTA (NEGATIVE); PH,URINE 6.5 PH (5.0-7.5); PROTEIN,URINE NEGATIVE (NEGATIVE); UROBILINOGEN,URINE 0.2 (NORMAL) E.U./dL (NORMAL)
[2022-06-14 11:53] LABS: CLARITY,URINE SL. CLOUDY (CLEAR)
[2022-06-14 11:55] LABS: WBC,URINE >25 /HPF (0-3)
[2022-06-14 11:56] LABS: BACTERIA,URINE Few /HPF (None Seen); RBC,URINE 0-5 /HPF (0-5); SQUAMOUS EPITHELIAL CELL,UR RARE Squamous (<= Few); WBC CLUMPS,URINE PRESENT
== END 2022-06-14 23:59 | disposition home or self-care (01) ==
LOC: LAB.WCP 08:00
PROVIDERS: ATTEND Nurse Practitioner
DX: R30.0 Dysuria (principal)
CPT/HCPCS: 81001; 87086

== ENCOUNTER 2022-06-24 16:20 | Outpatient (CLI) | payer MEDICAID ==
[2022-06-24 21:45] LABS: FECAL OCCULT BLOOD (FIT) POSITIVE (NEGATIVE)
== END 2022-06-24 23:59 | disposition home or self-care (01) ==
LOC: LAB.N 16:20
PROVIDERS: ATTEND Nurse Practitioner
DX: Z12.11 Encounter for screening for malignant neoplasm of colon (principal)
CPT/HCPCS: 82274

== ENCOUNTER 2022-07-09 08:48 | Outpatient (CLI) | payer MEDICAID ==
[2022-07-09 12:12] LABS: BASOPHILS % (AUTO) 0.4 %; EOSINOPHILS # (AUTO) 0.2 10^3/uL (0.0-0.7); EOSINOPHILS % (AUTO) 2.2 %; HCT - HEMATOCRIT 42.5 % (42.0-52.0); HGB - HEMOGLOBIN 13.8 g/dL (14.0-18.0); LYMPHOCYTES # (AUTO) 2.7 10^3/uL (1.5-3.5); LYMPHOCYTES % (AUTO) 26.6 %; MEAN CORPUSCULAR HEMOGLOBIN 28.5 pg (27.0-31.0); MEAN CORPUSCULAR HGB CONC 32.5 g/dL (32.0-36.0); MEAN CORPUSCULAR VOLUME 87.6 fL (80.0-94.0); MEAN PLATELET VOLUME 10.3 fL (7.4-11.4); MONOCYTES # (AUTO) 0.5 10^3/uL (0.0-1.0); MONOCYTES % (AUTO) 5.4 %; NEUTROPHILS # (AUTO) 6.5 10^3/uL (1.5-6.6); NEUTROPHILS % (AUTO) 64.8 %; PLT - PLATELET COUNT 257 10^3/uL (130-450); RED BLOOD COUNT 4.85 10^6/uL (4.70-6.10)
[2022-07-09 13:03] LABS: CREATININE,URINE 139.8 mg/dL; MICROALBUM/CREATININE RATIO,UR 127.3 ug/mg (<30.0); MICROALBUMIN,URINE 17.8 mg/dL (0-300.0)
[2022-07-09 13:27] LABS: BILIRUBIN,URINE NEGATIVE (NEGATIVE); CLARITY,URINE CLOUDY (CLEAR); GLUCOSE, URINE (UA) 500 mg/dL (NEGATIVE); KETONES,URINE (UA) NEGATIVE (NEGATIVE); LEUKOCYTE ESTERASE, URINE LARGE (NEGATIVE); NITRITE,URINE NEGATIVE (NEGATIVE); OCCULT BLOOD,URINE TRACE-INTA (NEGATIVE); PROTEIN,URINE 30 mg/dL (NEGATIVE); UROBILINOGEN,URINE 0.2 (NORMAL) E.U./dL (NORMAL)
[2022-07-09 13:28] LABS: BACTERIA,URINE Moderate /HPF (None Seen); SQUAMOUS EPITHELIAL CELL,UR FEW Squamous (<= Few); WBC,URINE >25 /HPF (0-3)
[2022-07-09 13:47] LABS: ALBUMIN 3.6 g/dL (3.2-5.5); ALBUMIN/GLOBULIN RATIO 0.9 (1.0-2.2); ALKALINE PHOSPHATASE 108 IU/L (42-121); ALT ALANINE AMINOTRANSFERASE 32 IU/L (10-60); AMYLASE 20 U/L (28-100); AST ASPARTATE AMINOTRANSFERASE 21 IU/L (10-42); BILIRUBIN,TOTAL 0.8 mg/dL (0.2-1.0); BUN - BLOOD UREA NITROGEN 9 mg/dL (6-20); CARBON DIOXIDE - CO2 25 mmol/L (21-32); CHLORIDE 96 mmol/L (101-111); CHOL/HDL RATIO 2.8 (<5.0); CHOLESTEROL 104 mg/dL; CREATININE 0.8 mg/dL (0.6-1.2); GFR - MDRD 102 (>89); GLUCOSE 340 mg/dL (70-100); HDL CHOLESTEROL 37 mg/dL; LDL CHOLESTEROL,CALCULATED 46 mg/dL; LDL/HDL RATIO 1.2 (<3.6); LIPASE 28 U/L (22-51); POTASSIUM 3.8 mmol/L (3.5-5.0); SODIUM 134 mmol/L (135-145); TOTAL PROTEIN 7.6 g/dL (6.7-8.2); TRIGLYCERIDES 105 mg/dL; VLDL CHOLESTEROL 21 mg/dL
[2022-07-09 13:50] LABS: THYROID STIMULATING HORMONE 2.59 uIU/mL (0.34-5.60)
[2022-07-09 15:00] LABS: ESTIMATED AVERAGE GLUCOSE 263 mg/dL (70-100); HEMOGLOBIN A1c% 10.8 % (4.27-6.07)
== END 2022-07-09 08:49 | disposition home or self-care (01) ==
LOC: LAB.N 08:48
PROVIDERS: ATTEND Nurse Practitioner
DX: R53.83 Other fatigue (principal); Z13.220 Encounter for screening for lipoid disorders; R30.0 Dysuria; D35.00 Benign neoplasm of unspecified adrenal gland; R10.9 Unspecified abdominal pain; E11.9 Type 2 diabetes mellitus without complications; Z12.5 Encounter for screening for malignant neoplasm of prostate; E29.1 Testicular hypofunction
CPT/HCPCS: 36415; 80053; 80061; 81001; 82043; 82088; 82150; 82570; 83036; 83690; 83721; 84153; 84403; 84443; 85025; 87086

== ENCOUNTER 2022-07-15 14:07 | Outpatient (CLI) | payer MEDICAID ==
--- NOTE | 2022-07-15 17:16 | Ultrasound Report ---
PROCEDURE: Abdomen Limited INDICATIONS: ADRENAL ADENOMA, ABD PAIN TECHNIQUE: Real-time focused scanning was performed of the abdomen, with image documentation. COMPARISON: CT of abdomen and pelvis dated 04/16/2020 FINDINGS: Study is limited due to patient's large body habitus. Right kidney measures 13.5 cm in length at 1.77 cm in renal cortical thickness. No hydronephrosis or nephrolithiasis. No gross solid-appearing renal lesion. Right adrenal gland is not visualized on this study. IMPRESSION: Limited evaluation due to patient's body habitus. Right adrenal gland is not visualized. No abnormali ty is seen in right kidney. Reviewed by: Jayden Gallego MD on 07/15/2022 5:15 PM PST Approved by: Jayden Gallego MD on 07/15/2022 5:15 PM PST Station ID: [id number]
== END 2022-07-15 14:08 | disposition home or self-care (01) ==
LOC: DI 14:07
PROVIDERS: ATTEND Nurse Practitioner
DX: D35.00 Benign neoplasm of unspecified adrenal gland (principal); R10.9 Unspecified abdominal pain

== ENCOUNTER 2022-09-06 07:20 | Outpatient (CLI) | payer MEDICAID | END 2022-09-06 07:21 | disposition home or self-care (01) | LOC: LAB.N 07:20 | PROVIDERS: ATTEND Nurse Practitioner | DX: D35.00 Benign neoplasm of unspecified adrenal gland (principal) | CPT/HCPCS: 36415; 81599; 82088; 82533; 82670; 82679; 84146; 84403 ==

== ENCOUNTER 2022-10-28 08:07 | Outpatient (CLI) | payer MEDICAID ==
[2022-11-01 22:07] LABS: METANEPHRINE URINE 12 ug/L (Undefined); METANEPHRINE URINE 24HR 36 ug/24 hr (58-276); NORMETANEPHRINE URINE 87 ug/L (Undefined); NORMETANEPHRINE URINE 24HR 261 ug/24 hr (156-729)
== END 2022-10-28 08:08 | disposition home or self-care (01) ==
LOC: LAB.N 08:07
PROVIDERS: ATTEND Nurse Practitioner
DX: E27.8 Other specified disorders of adrenal gland (principal)
CPT/HCPCS: 36415; 82088; 82533; 83835; 84244

== ENCOUNTER 2022-11-03 07:42 | Outpatient (CLI) | payer MEDICAID | END 2022-11-03 07:43 | disposition home or self-care (01) | LOC: LAB.N 07:42 | PROVIDERS: ATTEND Nurse Practitioner | DX: E27.8 Other specified disorders of adrenal gland (principal) | CPT/HCPCS: 36415; 82088; 84244 ==

== ENCOUNTER 2022-11-15 08:40 | Outpatient (CLI) | payer MEDICAID | END 2022-11-15 08:41 | disposition home or self-care (01) | LOC: RT 08:40 | PROVIDERS: ATTEND Nurse Practitioner | DX: I45.10 Unspecified right bundle-branch block (principal); I49.9 Cardiac arrhythmia, unspecified | CPT/HCPCS: 93005 ==

== ENCOUNTER 2022-11-29 07:04 | Outpatient (CLI) | payer MEDICAID ==
[2022-11-29 12:12] LABS: ESTIMATED AVERAGE GLUCOSE 246 mg/dL (70-100); HEMOGLOBIN A1c% 10.2 % (4.27-6.07)
[2022-11-29 12:21] LABS: CALCIUM 8.9 mg/dL (8.5-10.3); CREATININE 0.9 mg/dL (0.6-1.2); POTASSIUM 3.2 mmol/L (3.5-5.0)
== END 2022-11-29 07:05 | disposition home or self-care (01) ==
LOC: LAB.N 07:04
PROVIDERS: ATTEND Nurse Practitioner
DX: E11.9 Type 2 diabetes mellitus without complications (principal)
CPT/HCPCS: 36415; 80048; 83036

== ENCOUNTER 2023-03-04 11:23 | Outpatient (CLI) | payer MEDICAID ==
[2023-03-04 17:52] LABS: BASOPHILS # (AUTO) 0.1 10^3/uL (0.0-0.1); BASOPHILS % (AUTO) 0.6 %; EOSINOPHILS # (AUTO) 0.1 10^3/uL (0.0-0.7); EOSINOPHILS % (AUTO) 1.3 %; HGB - HEMOGLOBIN 14.4 g/dL (14.0-18.0); LYMPHOCYTES # (AUTO) 3.7 10^3/uL (1.5-3.5); LYMPHOCYTES % (AUTO) 34.2 %; MEAN CORPUSCULAR HEMOGLOBIN 29.3 pg (27.0-31.0); MEAN CORPUSCULAR HGB CONC 33.5 g/dL (32.0-36.0); MEAN CORPUSCULAR VOLUME 87.6 fL (80.0-94.0); MEAN PLATELET VOLUME 10.1 fL (7.4-11.4); MONOCYTES # (AUTO) 0.6 10^3/uL (0.0-1.0); MONOCYTES % (AUTO) 5.4 %; NEUTROPHILS # (AUTO) 6.3 10^3/uL (1.5-6.6); NEUTROPHILS % (AUTO) 57.9 %; PLT - PLATELET COUNT 274 10^3/uL (130-450); RED BLOOD COUNT 4.91 10^6/uL (4.70-6.10); RED CELL DISTRIBUTION WIDTH 14.2 % (12.0-15.0); WHITE BLOOD COUNT 10.8 x10^3/uL (4.8-10.8)
[2023-03-04 18:18] LABS: MICROALBUMIN,URINE 6.5 mg/dL
[2023-03-04 18:21] LABS: ALBUMIN 4.2 g/dL (3.2-5.5); ALBUMIN/GLOBULIN RATIO 1.2 (1.0-2.2); BILIRUBIN,TOTAL 0.7 mg/dL (0.2-1.0); CALCIUM 9.5 mg/dL (8.5-10.3); CREATININE 0.8 mg/dL (0.6-1.3); POTASSIUM 3.8 mmol/L (3.5-4.5); TOTAL PROTEIN 7.8 g/dL (6.4-8.9)
[2023-03-04 20:46] LABS: ESTIMATED AVERAGE GLUCOSE 263 mg/dL (70-100); HEMOGLOBIN A1c% 10.8 % (4.27-6.07)
== END 2023-03-04 11:24 | disposition home or self-care (01) ==
LOC: LAB.N 11:23
PROVIDERS: ATTEND Nurse Practitioner
DX: E11.9 Type 2 diabetes mellitus without complications (principal); I10 Essential (primary) hypertension
CPT/HCPCS: 36415; 80053; 82043; 82570; 83036; 85025

== ENCOUNTER 2023-06-08 07:27 | Outpatient (CLI) | payer MEDICAID ==
[2023-06-08 12:09] LABS: BUN - BLOOD UREA NITROGEN 8 mg/dL (6-20); CALCIUM 9.1 mg/dL (8.5-10.3); CARBON DIOXIDE - CO2 29 mmol/L (21-32); CHLORIDE 96 mmol/L (101-111); CHOL/HDL RATIO 2.6 (<5.0); CHOLESTEROL 95 mg/dL; CREATININE 0.7 mg/dL (0.6-1.3); GFR - MDRD 118 (>89); GLUCOSE 292 mg/dL (74-104); HDL CHOLESTEROL 37 mg/dL; LDL CHOLESTEROL,CALCULATED 35 mg/dL; LDL/HDL RATIO 0.9 (<3.6); POTASSIUM 3.7 mmol/L (3.5-4.5); SODIUM 133 mmol/L (135-145); TRIGLYCERIDES 115 mg/dL (48-352); VLDL CHOLESTEROL 23 mg/dL
[2023-06-08 12:16] LABS: CREATININE,URINE 134.7 mg/dL; MICROALBUM/CREATININE RATIO,UR 201.2 ug/mg (<30.0); MICROALBUMIN,URINE 27.1 mg/dL
[2023-06-08 12:17] LABS: ESTIMATED AVERAGE GLUCOSE 269 mg/dL (70-100)
== END 2023-06-08 07:28 | disposition home or self-care (01) ==
LOC: LAB.N 07:27
PROVIDERS: ATTEND Nurse Practitioner
DX: E11.9 Type 2 diabetes mellitus without complications (principal); E78.5 Hyperlipidemia, unspecified
CPT/HCPCS: 36415; 80048; 80061; 82043; 82570; 83036; 83721

== ENCOUNTER 2023-12-14 08:00 | Outpatient (CLI) | payer MEDICAID ==
[2023-12-14 12:22] LABS: BASOPHILS # (AUTO) 0.1 10^3/uL (0.0-0.1); BASOPHILS % (AUTO) 0.4 %; EOSINOPHILS # (AUTO) 0.2 10^3/uL (0.0-0.7); EOSINOPHILS % (AUTO) 1.3 %; HCT - HEMATOCRIT 45.7 % (42.0-52.0); HGB - HEMOGLOBIN 14.5 g/dL (14.0-18.0); LYMPHOCYTES # (AUTO) 3.3 10^3/uL (1.5-3.5); LYMPHOCYTES % (AUTO) 24.6 %; MEAN CORPUSCULAR HEMOGLOBIN 27.7 pg (27.0-31.0); MEAN CORPUSCULAR HGB CONC 31.7 g/dL (32.0-36.0); MEAN CORPUSCULAR VOLUME 87.4 fL (80.0-94.0); MEAN PLATELET VOLUME 9.9 fL (7.4-11.4); MONOCYTES # (AUTO) 0.7 10^3/uL (0.0-1.0); MONOCYTES % (AUTO) 5.4 %; NEUTROPHILS # (AUTO) 9.1 10^3/uL (1.5-6.6); NEUTROPHILS % (AUTO) 67.6 %; PLT - PLATELET COUNT 291 10^3/uL (130-450); RED BLOOD COUNT 5.23 10^6/uL (4.70-6.10); RED CELL DISTRIBUTION WIDTH 13.8 % (12.0-15.0); WHITE BLOOD COUNT 13.5 x10^3/uL (4.8-10.8)
[2023-12-14 12:45] LABS: ALBUMIN 4.2 g/dL (3.2-5.5); ALBUMIN/GLOBULIN RATIO 1.1 (1.0-2.2); BILIRUBIN,TOTAL 0.5 mg/dL (0.2-1.0); CALCIUM 9.5 mg/dL (8.5-10.3); CREATININE 0.7 mg/dL (0.6-1.3); POTASSIUM 4.3 mmol/L (3.5-4.5)
[2023-12-14 13:51] LABS: ESTIMATED AVERAGE GLUCOSE 148 mg/dL (70-100); HEMOGLOBIN A1c% 6.8 % (4.27-6.07)
== END 2023-12-14 23:59 | disposition home or self-care (01) ==
LOC: LAB.N 08:00
PROVIDERS: ATTEND Nurse Practitioner
DX: I10 Essential (primary) hypertension (principal); R53.83 Other fatigue; E11.9 Type 2 diabetes mellitus without complications
CPT/HCPCS: 36415; 80053; 82607; 83036; 85025

== ENCOUNTER 2024-02-01 09:40 | Outpatient (CLI) | payer MEDICAID ==
--- NOTE | 2024-02-01 11:27 | Sleep Patient Instructions ---
Sleep Center Visit Summary - Patient Visit Information Reason for Visit: Annual follow-up - Patient Instructions Additional Instructions: You will continue with BiPAP therapy with pressure set at 25/21 cmH2O. A supply prescription will be updated with your DME supplier. I have added an order to update your PAP machine. Please call the office to schedule a compliance follow up once you get your new device. We encourage you to continue to try to lose weight. Please follow up with the sleep care office one month after obtaining new device. - Clinic Information Contact: [facility] [address] [place] [email or web address] T: [phone]
--- NOTE | 2024-02-01 11:32 | SLEEP CARE CONSULTATION ---
Information from patient questionnaire entered by Nabeel Cerna. I have reviewed and concur with the information entered by Nabeel Cerna. This document represents the service I personally performed and the decisions made by me, Rashmi Richter ARNP. History of Present Illness Service Date and Time: 02/01/2024 0940 Previous diagnosis: Severe, Obstructive Sleep Apnea-Hypopnea Syndrome AHI: 48.4 (in 2019, 113.4 in 2010) Reason for follow up: annual (Last seen 03/2021, having some machine issues) Equipment type: BiPAP (Dreamstation Auto Bipap, recertified) Equipment obtained from: Other ([facility]) Mask style: Full face (AirFit F20, large) Mask brand: Resmed (F20) Backup mask available: Yes (old mask) Last cushion change: 2 weeks Prior sleep studies: Yes Year and Where: 2010 , 2019 - [facility] (T) HPI additional information: JASON BELL was diagnosed to have severe, AHI 48.4, obstructive sleep apnea- hypopnea syndrome and returned today with spouse for BIPAP therapy annual follow-up. Sleep Study - Results Prior sleep studies: Yes Year and Where: 2010 , 2019 - [facility] (T) CPAP Compliance Data - Data Reviewed with Patient Average duration of nightly device use: 7 h 52 min Compliance rate %: 97.2 (180/180 days used) Current pressure setting (cmH2O): 25/21 Humidity setting: Off Heated hose settin Average residual AHI: 4.9 Average large leak: 4 h 9 min Compliance data discussion: His water chamber won't stay closed/latched. His machine pressure is cutting out, stopping. He has to restart to get it to get it to have pressure again. Subjective Missed days of use due to: reports: other (Machine cuts out) Patient concerns: denies: aerophagia, mask discomfort, air blowing in eyes, mask leak noise, condensation in mask/hose, nasal congestion, dry mouth, nose, throat, epistaxis Observed to snore while using device: No Current pressure setting perceived as: comfortable On therapy, patient: reports: sleeping better, awakening more refreshed, being more awake and alert during the day, more rested overall. denies: drowsiness while driving Initial [place] Sleepiness Scale score: 16 (in 2013) Current [place] Sleepiness Scale score: 7 (02/01/2024) Allergies and Home Medications Known drug allergies: Yes (as listed) Drug allergies reviewed: Yes Home medication list reviewed: Yes (no changes) Allergy and home medication list: Allergies hydrochlorothiazide Allergy Edema Review of Systems Review of systems same as previous: Yes (no changes) Physical Exam Vital signs obtained and entered by: Rashmi Nichols NP Blood Pressure: 168/99 (he has not taken his BP meds this morning) Cuff size: long (on left forearm) Heart Rate: 100 O2 Saturation: 97 Height: 6 ft 2 in Weight: 476 lb (per pt) Body Mass Index: 61.1 BMI Classification: Morbidly Obese Impression and Plan 1. Obstructive Sleep Apnea-Hypopnea Syndrome, severe, with good treatment compliance and good apnea control. On BIPAP therapy, the patient has better sleep quality and is more rested overall. He has a DreamStation BiPAP that he received for the recall. The water chamber latch will not stay closed and so he cannot use the humidifier. His machine is also shutting off randomly, waking him up and he has to restart it to get the pressure going. This is a sign of malfunction and we will see if they can fix his device or replace it. A DWO prescription will be made. Compliance guidelines for new device and follow up discussed. Patient's apnea severity and rationale for treatment to reduce apnea, improve sleep quality and reduce cardiovascular and cerebrovascular events was reviewed. I also reviewed the benefit of consistent device use of BIPAP for hypertension, diabetes, migraines. 2. Obesity, unspecified. Currently patients BMI is 61.1. He has lost weight. Obesity increases the risk of apnea, BIPAP pressure requirements and overall health risks especially cardiovascular and diabetes. Thus patient is advised to continue to try to lose weight. * Continue BIPAP pressure at 25/21 cmH2O * Repair or replace BiPAP that is malfunctioning * Update supply prescription. * Notify me if snoring with mask or feeling that the pressure is too much or too little * Attempt to lose weight * Call this office if any problems using BIPAP * Return for follow up one month after obtaining new device, or sooner if concerns arise Counseling Topics: Spare mask, Weight loss health impact Prescriptions: BiPAP, Device supplies Visit Type: In Office Time Spent with Patient (minutes): 23 Provider Statement: I spent 100% of the Face to Face Visit with the patient with greater than 50% spent counseling the patient and coordination of care.
[2024-02-01 11:34] VITALS: BP 168/99; O2SAT 97
== END 2024-02-01 09:41 | disposition home or self-care (01) ==
LOC: SC 09:40
PROVIDERS: ATTEND Nurse Practitioner Family
DX: G47.33 Obstructive sleep apnea (adult) (pediatric) (principal); E66.01 Morbid (severe) obesity due to excess calories; Z68.44 Body mass index [BMI] 60.0-69.9, adult
CPT/HCPCS: 99212; 99213